=== PATIENT | male | born 1980 | race Two or more races ===

== ENCOUNTER 2020-12-15 09:39 | Inpatient (IN) | payer BC, OTHER ==
[~2020-12-15] VITALS: Ht 170.2 cm; Wt 142.8 kg
[2020-12-15] MEDS ORDERED: cefTRIAXone 1GM/50ML D5W 50 ML IV ONE (10:00)
[2020-12-15] MEDS ORDERED: AZITHROMYCIN 500MG/ 250ML 250 ML IV ONE (10:00)
[2020-12-15] MEDS ORDERED: DexAMETHasone SOD PHOS 10MG/1ML VIAL INJ IV ONE (10:00)
[2020-12-15 10:34] LABS: Basophils # (auto) 0.1 10 ^3/uL (0-0.2); Basophils % (auto) 0.7 % (0.0-2.0); Eosinophils # (auto) 0 10 ^3/uL (0-0.8); Hemoglobin 15.5 g/dL (13.5-17.5); Lymphocytes # (auto) 0.6 10 ^3/uL (0.4-5.4); Lymphocytes % (auto) 7.1 % (10.0-50.0); Mean Corpuscular Hemoglobin 30.7 pg (28.0-32.0); Mean Corpuscular Hgb Conc. 34.4 g/dL (32.0-36.0); Mean Corpuscular Volume 89.2 fL (80.0-100.0); Monocytes # (auto) 0.4 10 ^3/uL (0-1.3); Monocytes % (auto) 4.9 % (0.0-12.0); Neutrophils # (auto) 7.8 10 ^3/uL (1.6-8.6); Neutrophils % (auto) 87.3 % (37.0-80.0); Platelet Count (auto) 206 10^3/uL (140-450); Red Blood Cells 5.05 10^6/uL (4.5-5.90); Red Cell Distribution Width 14.2 % (11.8-14.3); White Blood Cell 8.9 10^3/uL (4.4-10.8)
[2020-12-15 10:52] LABS: Albumin 3.4 g/dL (3.4-5.0); Calcium 8.1 mg/dL (8.5-10.1); Potassium 3.5 mmol/L (3.5-5.1)
[2020-12-15 11:01] LABS: BUN/Creatinine Ratio 8.7; Bilirubin, Total 0.6 mg/dL (0.2-1.0); Total Protein 7.9 g/dL (6.4-8.2)
[2020-12-15] MEDS ORDERED: ZINC SULFATE 220mg CAP or TAB PO ONE (12:00)
[2020-12-15] MEDS ORDERED: MORPHINE SULF INJ 2 MG/ML SYRINGE 1ML IV PRN ×2 (15:00→17:00)
[2020-12-15] MEDS ORDERED: NITROGLYCERIN 0.4 MG SL TAB SL PRN (15:00)
[2020-12-15] MEDS ORDERED: ACETAMINOPHEN 500 MG TAB PO PRN (17:00)
[2020-12-15] MEDS ORDERED: DEXTROSE (50%) 50ML SYRG IV PRN (17:00)
[2020-12-15] MEDS ORDERED: TEMAZEPAM 15 MG CAP PO PRN (17:00)
[2020-12-15] MEDS ORDERED: PROMETHAZINE HCL 25 MG/ML 1ML IV PRN (17:00)
[2020-12-15] MEDS ORDERED: REMDESIVIR PER PHARMACY 0 ML IV SCH (17:00)
[2020-12-15] MEDS ORDERED: diphenhdrAMINE HCL 50 MG/1 ML VL IV PRN (17:00)
[2020-12-15] MEDS ORDERED: LACTULOSE 20Gm/30ML SOLN PO PRN (17:00)
[2020-12-15] MEDS: ACCU-CHEK COMFORT CURVE STRIP VI SCH ×2 (17:50→22:40)
[2020-12-15] MEDS ORDERED: REMDESIVIR 200 MG in NS 210ml LOADING DOSE ADULT IV ONE (20:00)
[2020-12-15] MEDS: traMADol HCL 50 MG TAB PO PRN (20:55)
[2020-12-15] MEDS: BUDESONIDE (INHALATION) 180 MCG IH IN SCH (22:00)
[2020-12-15] MEDS: ENOXAPARIN SOD 40 MG/0.4 ML SYRINGE SC SCH (22:00)
[2020-12-15] MEDS ORDERED: FAMOTIDINE (10MG/ML) 2ML VL IV SCH (22:00)
[2020-12-15] MEDS: FAMOTIDINE 20 MG TAB PO SCH (22:00)
[2020-12-16 03:15] VITALS: BP 115/65
[2020-12-16 04:08] VITALS: BP 115/65
[2020-12-16] MEDS: ACCU-CHEK COMFORT CURVE STRIP VI SCH (07:07)
[2020-12-16] MEDS: BUDESONIDE (INHALATION) 180 MCG IH IN SCH ×2 (07:26→19:06)
[2020-12-16 07:58] VITALS: BP 125/74
[2020-12-16] MEDS: levoFLOXacin 500MG 100 ML IV SCH (09:09)
[2020-12-16] MEDS: CHOLECALCIFEROL (VITD3) 2,000 UNIT CAP PO SCH (09:10)
[2020-12-16] MEDS: ENOXAPARIN SOD 40 MG/0.4 ML SYRINGE SC SCH ×2 (09:10→22:28)
[2020-12-16] MEDS: FAMOTIDINE 20 MG TAB PO SCH ×2 (09:10→22:28)
[2020-12-16] MEDS: ZINC SULFATE 220mg CAP or TAB PO SCH (09:10)
[2020-12-16] MEDS: ASCORBIC ACID 1,000 MG TAB PO SCH (09:11)
[2020-12-16] MEDS: traMADol HCL 50 MG TAB PO PRN (09:12)
[2020-12-16] MEDS: DexAMETHasone SOD PHOS 10MG/1ML VIAL INJ IV SCH (09:12)
[2020-12-16] MEDS ORDERED: IVERMECTIN 3 MG TAB PO ONE (10:00)
[2020-12-16 10:41] LABS: Basophils # (auto) 0.1 10 ^3/uL (0-0.2); Basophils % (auto) 0.6 % (0.0-2.0); Eosinophils # (auto) 0 10 ^3/uL (0-0.8); Hematocrit 41.7 % (41.0-53.0); Hemoglobin 14.3 g/dL (13.5-17.5); Lymphocytes # (auto) 0.6 10 ^3/uL (0.4-5.4); Lymphocytes % (auto) 6.2 % (10.0-50.0); Mean Corpuscular Hemoglobin 30.4 pg (28.0-32.0); Mean Corpuscular Hgb Conc. 34.4 g/dL (32.0-36.0); Mean Corpuscular Volume 88.5 fL (80.0-100.0); Monocytes # (auto) 0.5 10 ^3/uL (0-1.3); Monocytes % (auto) 4.4 % (0.0-12.0); Neutrophils # (auto) 9.3 10 ^3/uL (1.6-8.6); Neutrophils % (auto) 88.8 % (37.0-80.0); Nucleated Red Blood Cells % 0.1 %; Platelet Count (auto) 229 10^3/uL (140-450); Red Blood Cells 4.71 10^6/uL (4.5-5.90); Red Cell Distribution Width 14.3 % (11.8-14.3); White Blood Cell 10.5 10^3/uL (4.4-10.8)
[2020-12-16 10:57] LABS: Albumin 3.1 g/dL (3.4-5.0); Calcium 8.3 mg/dL (8.5-10.1); Potassium 4.1 mmol/L (3.5-5.1)
[2020-12-16 11:01] LABS: Bilirubin, Total 0.4 mg/dL (0.2-1.0); Total Protein 7.7 g/dL (6.4-8.2)
[2020-12-16 11:08] LABS: INR 0.98 (0.9-1.15)
[2020-12-16] MEDS: REMDESIVIR 100mg 100 MG in SODIUM CHL 0.9% 230 ML IV SCH (15:50)
[2020-12-16 15:52] VITALS: BP 125/76
[2020-12-16] MEDS: ALBUTEROL SULF HFA 90MCG INH 200DOSE IN PRN (19:06)
[2020-12-17] VITALS: BP 143/82
[2020-12-17 00:18] VITALS: BP 125/84
[2020-12-17 00:36] VITALS: BP 122/83
[2020-12-17 01:55] VITALS: BP 114/52
[2020-12-17 06:11] LABS: Basophils # (auto) 0 10 ^3/uL (0-0.2); Basophils % (auto) 0.2 % (0.0-2.0); Eosinophils # (auto) 0 10 ^3/uL (0-0.8); Hematocrit 41.5 % (41.0-53.0); Hemoglobin 14.3 g/dL (13.5-17.5); Lymphocytes # (auto) 0.8 10 ^3/uL (0.4-5.4); Lymphocytes % (auto) 12.3 % (10.0-50.0); Mean Corpuscular Hemoglobin 30.8 pg (28.0-32.0); Mean Corpuscular Hgb Conc. 34.5 g/dL (32.0-36.0); Mean Corpuscular Volume 89.2 fL (80.0-100.0); Monocytes # (auto) 0.6 10 ^3/uL (0-1.3); Monocytes % (auto) 8.3 % (0.0-12.0); Neutrophils # (auto) 5.4 10 ^3/uL (1.6-8.6); Neutrophils % (auto) 79.2 % (37.0-80.0); Nucleated Red Blood Cells % 0.1 %; Platelet Count (auto) 246 10^3/uL (140-450); Red Blood Cells 4.65 10^6/uL (4.5-5.90); Red Cell Distribution Width 14.4 % (11.8-14.3); White Blood Cell 6.9 10^3/uL (4.4-10.8)
[2020-12-17 06:23] LABS: Albumin 3.1 g/dL (3.4-5.0); Calcium 8.2 mg/dL (8.5-10.1); Potassium 3.9 mmol/L (3.5-5.1)
[2020-12-17 06:27] LABS: BUN/Creatinine Ratio 18.9; Bilirubin, Total 0.4 mg/dL (0.2-1.0); Total Protein 7.5 g/dL (6.4-8.2)
[2020-12-17] MEDS: BUDESONIDE (INHALATION) 180 MCG IH IN SCH ×2 (07:03→18:55)
[2020-12-17] MEDS: ALBUTEROL SULF HFA 90MCG INH 200DOSE IN PRN ×2 (07:03→19:43)
[2020-12-17 08:00] VITALS: BP 111/56
[2020-12-17] MEDS: DexAMETHasone SOD PHOS 10MG/1ML VIAL INJ IV SCH (09:56)
[2020-12-17] MEDS: ENOXAPARIN SOD 40 MG/0.4 ML SYRINGE SC SCH ×2 (09:57→22:12)
[2020-12-17] MEDS: ASCORBIC ACID 1,000 MG TAB PO SCH (09:57)
[2020-12-17] MEDS: ZINC SULFATE 220mg CAP or TAB PO SCH (09:57)
[2020-12-17] MEDS: FAMOTIDINE 20 MG TAB PO SCH ×2 (09:57→22:12)
[2020-12-17] MEDS: levoFLOXacin 500MG 100 ML IV SCH (09:57)
[2020-12-17] MEDS: CHOLECALCIFEROL (VITD3) 2,000 UNIT CAP PO SCH (09:57)
[2020-12-17] MEDS: REMDESIVIR 100mg 100 MG in SODIUM CHL 0.9% 230 ML IV SCH (15:00)
[2020-12-17 16:00] VITALS: BP 115/74
[2020-12-18 00:25] VITALS: BP 118/76
[2020-12-18 06:16] LABS: Basophils # (auto) 0 10 ^3/uL (0-0.2); Basophils % (auto) 0.1 % (0.0-2.0); Eosinophils # (auto) 0 10 ^3/uL (0-0.8); Hematocrit 40.4 % (41.0-53.0); Lymphocytes # (auto) 0.8 10 ^3/uL (0.4-5.4); Lymphocytes % (auto) 14.8 % (10.0-50.0); Mean Corpuscular Hemoglobin 30.6 pg (28.0-32.0); Mean Corpuscular Hgb Conc. 34.5 g/dL (32.0-36.0); Mean Corpuscular Volume 88.8 fL (80.0-100.0); Monocytes # (auto) 0.7 10 ^3/uL (0-1.3); Monocytes % (auto) 11.7 % (0.0-12.0); Neutrophils # (auto) 4.1 10 ^3/uL (1.6-8.6); Neutrophils % (auto) 73.4 % (37.0-80.0); Nucleated Red Blood Cells % 0.1 %; Platelet Count (auto) 287 10^3/uL (140-450); Red Blood Cells 4.56 10^6/uL (4.5-5.90); Red Cell Distribution Width 14.3 % (11.8-14.3); White Blood Cell 5.6 10^3/uL (4.4-10.8)
[2020-12-18 06:21] LABS: Albumin 3.2 g/dL (3.4-5.0); Calcium 8.5 mg/dL (8.5-10.1); Potassium 4.1 mmol/L (3.5-5.1)
[2020-12-18 06:24] LABS: BUN/Creatinine Ratio 16.5; Bilirubin, Total 0.5 mg/dL (0.2-1.0); Total Protein 7.5 g/dL (6.4-8.2)
[2020-12-18] MEDS: BUDESONIDE (INHALATION) 180 MCG IH IN SCH ×2 (06:48→21:40)
[2020-12-18 08:00] VITALS: BP 110/68
[2020-12-18] MEDS: levoFLOXacin 500MG 100 ML IV SCH (09:09)
[2020-12-18] MEDS: ZINC SULFATE 220mg CAP or TAB PO SCH (09:09)
[2020-12-18] MEDS: DexAMETHasone SOD PHOS 10MG/1ML VIAL INJ IV SCH (09:09)
[2020-12-18] MEDS: ENOXAPARIN SOD 40 MG/0.4 ML SYRINGE SC SCH ×2 (09:09→22:10)
[2020-12-18] MEDS: CHOLECALCIFEROL (VITD3) 2,000 UNIT CAP PO SCH (09:09)
[2020-12-18] MEDS: FAMOTIDINE 20 MG TAB PO SCH ×2 (09:09→22:10)
[2020-12-18] MEDS: ASCORBIC ACID 1,000 MG TAB PO SCH (09:09)
[2020-12-18] MEDS: ALBUTEROL SULF HFA 90MCG INH 200DOSE IN PRN (09:13)
[2020-12-18] MEDS: REMDESIVIR 100mg 100 MG in SODIUM CHL 0.9% 230 ML IV SCH (15:07)
[2020-12-18 16:00] VITALS: BP 118/70
[2020-12-19] VITALS: BP 128/88
[2020-12-19 05:24] LABS: Basophils # (auto) 0 10 ^3/uL (0-0.2); Basophils % (auto) 0.1 % (0.0-2.0); Eosinophils # (auto) 0 10 ^3/uL (0-0.8); Eosinophils % (auto) 0.1 % (0.0-7.0); Hematocrit 40.4 % (41.0-53.0); Lymphocytes # (auto) 0.9 10 ^3/uL (0.4-5.4); Lymphocytes % (auto) 14.4 % (10.0-50.0); Mean Corpuscular Hemoglobin 30.5 pg (28.0-32.0); Mean Corpuscular Hgb Conc. 34.6 g/dL (32.0-36.0); Mean Corpuscular Volume 88.3 fL (80.0-100.0); Monocytes # (auto) 0.6 10 ^3/uL (0-1.3); Neutrophils # (auto) 4.6 10 ^3/uL (1.6-8.6); Neutrophils % (auto) 75.4 % (37.0-80.0); Nucleated Red Blood Cells % 0.1 %; Platelet Count (auto) 327 10^3/uL (140-450); Red Blood Cells 4.58 10^6/uL (4.5-5.90); White Blood Cell 6.1 10^3/uL (4.4-10.8)
[2020-12-19 05:55] LABS: Potassium 4.4 mmol/L (3.5-5.1)
[2020-12-19 06:03] LABS: Albumin 2.9 g/dL (3.4-5.0); BUN/Creatinine Ratio 16.3; Bilirubin, Total 0.5 mg/dL (0.2-1.0); Calcium 8.3 mg/dL (8.5-10.1); Total Protein 7.1 g/dL (6.4-8.2)
[2020-12-19] MEDS: BUDESONIDE (INHALATION) 180 MCG IH IN SCH (06:22)
[2020-12-19] MEDS: ALBUTEROL SULF HFA 90MCG INH 200DOSE IN PRN (06:22)
[2020-12-19 08:00] VITALS: BP 109/71
[2020-12-19] MEDS: ASCORBIC ACID 1,000 MG TAB PO SCH (09:57)
[2020-12-19] MEDS: FAMOTIDINE 20 MG TAB PO SCH (09:57)
[2020-12-19] MEDS: ZINC SULFATE 220mg CAP or TAB PO SCH (09:57)
[2020-12-19] MEDS: levoFLOXacin 500MG 100 ML IV SCH (09:57)
[2020-12-19] MEDS: DexAMETHasone SOD PHOS 10MG/1ML VIAL INJ IV SCH (09:57)
[2020-12-19] MEDS: ENOXAPARIN SOD 40 MG/0.4 ML SYRINGE SC SCH (09:58)
[2020-12-19] MEDS: CHOLECALCIFEROL (VITD3) 2,000 UNIT CAP PO SCH (09:58)
[2020-12-19] MEDS ORDERED: ASCO10003 PO (11:25)
[2020-12-19] MEDS ORDERED: CHOL1CAP47 PO (11:25)
[2020-12-19] MEDS ORDERED: LEVO750T64 PO (11:25)
[2020-12-19 15:45] VITALS: BP 120/64
== END 2020-12-19 17:55 | disposition home or self-care (01) | DRG 177 ==
LOC: ER 09:39 → TELE 09:40 → TELE-EAST 12-16 03:15
PROVIDERS: ADMIT Internal Medicine; ATTEND Internal Medicine Pulmonary Disease
PROC: XW033E5 Introduction of Remdesivir Anti-infective into Peripheral Vein, Percutaneous Approach, New Technology Group 5 (ICD-10-PCS; 2020-12-15)
PROC: XW13325 Transfusion of Convalescent Plasma (Nonautologous) into Peripheral Vein, Percutaneous Approach, New Technology Group 5 (ICD-10-PCS; principal; 2020-12-17)
DX: U07.1 COVID-19 (principal); J12.82 Pneumonia due to coronavirus disease 2019; J96.01 Acute respiratory failure with hypoxia; Z68.42 Body mass index [BMI] 45.0-49.9, adult; R73.9 Hyperglycemia, unspecified; R73.03 Prediabetes; E66.01 Morbid (severe) obesity due to excess calories; Z83.3 Family history of diabetes mellitus
CPT/HCPCS: 36415; 71045; 80053; 82728; 82962; 83036; 83605; 83615; 85025; 85610; 86141; 86850; 86900; 86901; 87040; 87426; 94640; 96365; 96368; 96375; 99291; G0378; J0696; J1100; J1956